=== PATIENT | female | born 2005 | race Caucasian/White ===

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

== ENCOUNTER 2024-05-23 12:27 | Emergency (ER) | payer OTHER, SELFPAY ==
[2024-05-23 12:30] VITALS: BP 106/62; PULSE 71; RESP 16; TEMP 37; O2SAT 97; BMI 35.9
--- NOTE | 2024-05-23 12:31 | ED_ITS ---
HPI - General Adult General Chief complaint: Back Pain/Injury Stated complaint: Low Back Pain S/P Injury 05/23/24 Time Seen by Provider: 05/23/24 12:31 Source: patient, RN notes reviewed and old records reviewed Mode of arrival: ambulatory Limitations: no limitations History of Present Illness ED Provider: Courtney CHIU narrative: 19-year-old female presents for evaluation of lower back pain. She reports that she went outside to greens picker a package that was left on her doorstep today. She states that she bent over and when she tried to lift it she had pain to her lower back. She denies any numbness, tingling. The pain does not radiate. Denies any history of back problems Denies any weakness. Her pain is worse with sitting and getting up from a seated position Related Data Previous Rx's ?Medication ?Instructions ?Recorded naproxen 500 mg tablet 500 mg PO BID 10 days #20 tabs 03/02/21 naproxen 500 mg tablet 500 mg PO BID 10 days #20 tabs 03/02/21 benzonatate 100 mg capsule 100 mg PO BID PRN cough #10 caps 04/02/21 (Andre Pascual) amoxicillin 875 mg-potassium 1 tab PO BID #14 tabs 02/05/22 clavulanate 125 mg tablet cetirizine 10 mg capsule 10 mg PO DAILY PRN allergy 02/05/22 symptoms #14 caps ibuprofen 600 mg tablet 600 mg PO Q6H PRN pain #20 tabs 02/05/22 cyclobenzaprine 10 mg tablet 10 mg PO TID PRN muscle spasm #20 05/23/24 tabs ibuprofen 600 mg tablet 600 mg PO Q6H PRN pain #20 tabs 05/23/24 Allergies Allergy/AdvReac Type Severity Reaction Status Date / Time No Known Allergies Allergy Verified 05/23/24 12:31 Review of Systems Constitutional: Constitutional: Denies body ache(s), Denies chills and Denies fever(s) Cardiovascular: Cardiovascular: Denies chest pain Respiratory: Respiratory: Denies cough Gastrointestinal: Gastrointestinal: Denies abdominal pain, Denies nausea and Denies vomiting Musculoskeletal: Musculoskeletal: Reports back pain Integumentary/Breasts: Skin/Breast: Denies rash Psychiatric: Psychiatric: Denies anxiety PMFSH Past Medical History Medical History Asthma Diabetes Social History Social History Advance Directives: No Advance Directives Information Provided: Yes Physical Exam ED Vital Signs: Vital Signs - 24 hr 05/23/24 12:30 Temperature 98.6 F Pulse Rate 71 Respiratory Rate 16 Blood Pressure 106/62 Pulse Oximetry 97 Oxygen Delivery Method Room Air BMI result Body Mass Index 35.9 Const General: healthy appearing, comfortable, no acute distress, alert and awake Nutritional Appearance: well nourished Orientation/consciousness: patient oriented x3 HENMT Head: Yes normocephalic and Yes atraumatic Eyes Eyelids: Yes eyelids normal Conjunctivae: conjunctivae normal Sclerae: sclerae normal Corneas: corneas normal Pupils: Equal, round and reactive pupils present EOM: EOMs intact bilaterally Neck Neck: Yes full ROM Resp Effort & Inspection: normal respiratory effort, able to speak in complete sentences and not labored GI Inspection: No distended Palpation (GI): Soft to palpation, not firm, nontender, no guarding and not rigid Back/Spine/Pelvis Other: There is tenderness around the lumbar paraspinous region bilaterally. No focal vertebral tenderness, no step-offs or deformities. Straight leg raise negative bilaterally Skin General skin exam: elasticity normal Neuro General: patient oriented x3 Cranial nerves: Yes Equal, round and reactive pupils present and Yes Bilaterally intact EOM present Cognition (Neuro): normal cognition Extrem Other: Moving all extremities well without any obvious deformities Medical Decision Making Medical Decision Making MDM Narrative: Patient has lower back pain after bending over and lifting. There was no fall or trauma to the back. There was no indication for emergent x-ray at this time. She has no warning signs for cauda equina syndrome, her pain does not radiate, I doubt nerve root impingement. We will treat her muscle strain with ibuprofen and cyclobenzaprine Differential Diagnosis Differential Diagnoses: The differential diagnosis associated with the presentation includes Lumbar strain Radiculopathy Disc herniation Back pain Tests considered The following testing was considered but not selected: Consider x-ray of the lumbar spine Prescription Management I considered prescription management with: Pain Medication Discharge Plan Discharge Clinical Impression: Lumbar strain Patient Disposition: Home, Self-Care Instructions: Acute Low Back Pain (ED) Additional Instructions: Your symptoms are most consistent with a muscle strain. Use ibuprofen/Tylenol as needed for pain. You may use cyclobenzaprine as needed for muscle spasms. This may make you drowsy, do not drink alcohol or drive after taking it Follow-up with your primary doctor, return for new or worsening symptoms Prescriptions: New cyclobenzaprine 10 mg tablet 10 mg PO TID PRN (Reason: muscle spasm) Qty: 20 0RF ibuprofen 600 mg tablet 600 mg PO Q6H PRN (Reason: pain) Qty: 20 0RF No Action benzonatate [Tessalon Perles] 100 mg capsule 100 mg PO BID PRN (Reason: cough) Qty: 10 0RF amoxicillin-pot clavulanate 875-125 mg tablet 1 tab PO BID Qty: 14 0RF cetirizine 10 mg capsule 10 mg PO DAILY PRN (Reason: allergy symptoms) Qty: 14 0RF ibuprofen 600 mg tablet 600 mg PO Q6H PRN (Reason: pain) Qty: 20 0RF naproxen 500 mg tablet 500 mg PO BID 10 Days Qty: 20 0RF naproxen 500 mg tablet 500 mg PO BID 10 Days Qty: 20 0RF Stand Alone Forms: Work/School Release Discharge Date/Time: 05/23/24 12:38 Print Language: Turkish
== END 2024-05-23 12:38 | disposition home or self-care (01) ==
LOC: HO.ED 12:36
PROVIDERS: Emergency Provider Emergency Medicine; PCP Pediatrics
DX: S39.012A Strain of muscle, fascia and tendon of lower back, initial encounter (principal); X50.9XXA Other and unspecified overexertion or strenuous movements or postures, initial encounter; Y93.89 Activity, other specified; Y92.018 Other place in single-family (private) house as the place of occurrence of the external cause; Y99.9 Unspecified external cause status
CPT/HCPCS: 99281; 99283

== ENCOUNTER 2025-06-05 18:34 | Emergency (ER) | payer OTHER, SELFPAY ==
--- NOTE | ~2025-06-05 | XR_ITS ---
CLINICAL HISTORY: prod cough, sob 2 view chest x-ray. Comparison: None Findings: No consolidation or effusion. Cardiac and mediastinal contours are unremarkable. Bones unremarkable. Impression: 1. No acute pulmonary disease. This document has been electronically signed by: Mark Broderick MD on 06/05/2025 19:15:36
[2025-06-05 18:37] VITALS: BP 134/72; PULSE 102; RESP 20; TEMP 37.2; O2SAT 94; BMI 36.2
--- NOTE | 2025-06-05 18:38 | ED.URI ---
HPI - URI/Sore Throat General Chief Complaint: Upper Respiratory Symptoms Stated Complaint: Migraine Cough Sneezing Time Seen by Provider: 06/05/25 21:29 Source: patient Mode of arrival: ambulatory Limitations: no limitations History of Present Illness ED Provider: Dr. Martinez [facility] Narrative: 20-year-old female history of asthma presented hospital today for cough congestion shortness of breath for the past 2 days. Been using inhaler without any relief. Also complaining of some headaches as well. Related Data Previous Rx's ?Medication ?Instructions ?Recorded naproxen 500 mg tablet 500 mg PO BID 10 days #20 tabs 03/02/21 naproxen 500 mg tablet 500 mg PO BID 10 days #20 tabs 03/02/21 benzonatate 100 mg capsule 100 mg PO BID PRN cough #10 caps 04/02/21 (Andre Pascual) amoxicillin 875 mg-potassium 1 tab PO BID #14 tabs 02/05/22 clavulanate 125 mg tablet cetirizine 10 mg capsule 10 mg PO DAILY PRN allergy 02/05/22 symptoms #14 caps ibuprofen 600 mg tablet 600 mg PO Q6H PRN pain #20 tabs 02/05/22 cyclobenzaprine 10 mg tablet 10 mg PO TID PRN muscle spasm #20 05/23/24 tabs ibuprofen 600 mg tablet 600 mg PO Q6H PRN pain #20 tabs 05/23/24 benzonatate 200 mg capsule 200 mg PO TID PRN cough #20 caps 06/05/25 prednisone 20 mg tablet 40 mg (2 x 20 mg) PO DAILY 5 days 06/05/25 #10 tabs Allergies Allergy/AdvReac Type Severity Reaction Status Date / Time No Known Allergies Allergy Verified 06/05/25 18:39 Review of Systems Review of Systems: Pertinent review of systems as mentioned in HPI. All other system otherwise negative. [facility] Past Medical History [facility] Narrative: Medical history as mentioned in [facility] Medical History Asthma Diabetes Social History Social History Advance Directives: No Advance Directives Information Provided: No Physical Exam Exam: Exam: General: Pleasant, no distress, interacting appropriately Head: Normacephalic, atraumatic ENT: oral mucosa moist, neck supple, no tracheal deviation Cardiovascular: regular rate, regular rhythm, no murmurs, rubbing, gallops Respiratory: CTAB, no wheeze, rales, rhonchi Neurological: Awake and alert, no facial droop noted Skin: Warm and dry Psychiatric: Appropriate mood and thoughts Vital Signs: Vital Signs: Last Vital Signs Temp 98.2 F 06/05/25 22:15 Pulse 102 H 06/05/25 22:15 Resp 18 06/05/25 22:15 BP 124/72 06/05/25 22:15 Pulse Ox 94 06/05/25 22:15 O2 Del Method Room Air 06/05/25 22:15 BMI result Body Mass Index 36.2 Course Course Course Narrative: This is a Rapid Medical Exam performed in triage by Nuvia Abreu PA-C. Full HPI, ROS and PE to be performed by primary ED provider. 20 yo F asthma, DM presenting to the ED c/o productive cough, SOB, migraine, sneezing, congested x last night. has been using inhaler w/o relief PE: NAD, nontoxic appearing, posterior oropharynx WNL, tonsils WNL, uvula midline. Lungs CTA Plan: SARs, Rapid strep, CXR Medical Decision Making Medical Decision Making MDM Narrative: 20-year-old female history of asthma presented hospital today for upper respiratory infection symptoms. Patient has tested positive for RSV We will plan to give patient a dose of prednisone here. Patient does have an albuterol as well. Encouraged conservative treatment in his supportive treatment for her infection at this time. Chest x-ray did not show any signs of pneumonia. Cough medicine will be prescribed to the patient. Encouraged her to follow up with the primary care doctor. Patient will be discharged Differential Diagnosis Differential Diagnoses: The differential diagnosis associated with the presentation includes Flu, COVID, flu, pneumonia, URI Lab Data [facility] Lab Attestation statement: I reviewed the patient's lab results. Labs: Lab Results 06/05/25 Range/Units 18:57 Influenza Type A (PCR) NEGATIVE (Negative) Influenza Type B (PCR) NEGATIVE (Negative) RSV RNA Qual (PCR) POSITIVE A (Negative) SARS-CoV-2 RNA (RT-PCR) NEGATIVE (Negative) S. pyogenes GrpA WENDY Negative (Negative) Independent Interpretation I performed an independent interpretation of an: Plain X-Ray Radiology Impression Discussion of test interpretation with radiology: I have reviewed the radiologist's reading. Discharge Plan Discharge Clinical Impression: Respiratory syncytial virus (RSV) Patient Disposition: Home, Self-Care Instructions: RSV (Respiratory Syncytial Virus) Infection (ED) Additional Instructions: Continue supportive treatment. RSV + on test. No pneumonia on chest x ray. Use the MDI for your albuterol inhaler. Prescriptions: New prednisone 20 mg tablet 40 mg PO DAILY 5 Days Qty: 10 0RF benzonatate 200 mg capsule 200 mg PO TID PRN (Reason: cough) Qty: 20 0RF No Action benzonatate [Tessalon Perles] 100 mg capsule 100 mg PO BID PRN (Reason: cough) Qty: 10 0RF amoxicillin-pot clavulanate 875-125 mg tablet 1 tab PO BID Qty: 14 0RF cetirizine 10 mg capsule 10 mg PO DAILY PRN (Reason: allergy symptoms) Qty: 14 0RF ibuprofen 600 mg tablet 600 mg PO Q6H PRN (Reason: pain) Qty: 20 0RF naproxen 500 mg tablet 500 mg PO BID 10 Days Qty: 20 0RF naproxen 500 mg tablet 500 mg PO BID 10 Days Qty: 20 0RF cyclobenzaprine 10 mg tablet 10 mg PO TID PRN (Reason: muscle spasm) Qty: 20 0RF ibuprofen 600 mg tablet 600 mg PO Q6H PRN (Reason: pain) Qty: 20 0RF Stand Alone Forms: Work/School Release Print Language: Danish
[2025-06-05 19:56] LABS: IDNOW Serial# 6674DD1D; Strep A Nucleic Acid Negative (Negative)
[2025-06-05 20:05] LABS: Resp Syncy Virus RNA Qual PCR POSITIVE (Negative); SARS COV2 PCR INHOUSE NEGATIVE (Negative)
--- OUTSIDE RECORDS SUMMARY | 2025-06-05 21:22 | XMS_ITS | Encounter Summary ---
Author Organization [facility] Address [address] [place] [address] Phone Care Team Providers Care Boat Designer Name Role Phone Edita Rm MD Primary Care Provider Unavailabl e Encounter Details Date Type Department Care Team (Late st Contact Info) Description 01/20/2017 Conversion Encounter [facility] - [address] [address] Social History Tobacco Use Types Packs/Day Years Used Date Smoking Tobacco: Never Assessed Comments Unknown Sex and Gender Information Value Date Recorded Sex Assigned at Not on file Legal Sex Female 4:22 PM EDT Gender Identity Not on file Sexual Orientation Not on file documented as of this encounter Plan of Treatment Not on file documented as of this encounter Visit Diagnoses Not on filedocumented in this encounter Care Teams Boat Designer Relationship Specialty Start Date End Date Edita Rm MD PCP - General 01/14/17 12/27/23 documented as of this encounter
--- OUTSIDE RECORDS SUMMARY | 2025-06-05 21:22 | XMS_ITS | Clinical Summary ---
Author Organization [facility] Address [address] [place] [id number] Phone Care Team Providers Care Dye Blender Name Role Phone Unavailable Primary Care Provider Unavailabl e Immunizations Immunization Administration Dates Next Due DTaP / Hep B / IPV 2004,2004, 004 DTaP 5 08/23/2005 Hep B, ped/adol 2004 Hib (HbOC) 05/27/2005,2004,2004 ,2004 Influenza, injectable, trivalent 03/24/2007,05/07 MMR 2005 Pneumococcal Conjugate 05/27/2005,2004,04/2005,2004 Varicella 2005 Family History Relation Name Status Comments Father Alive Father: Alive a nd well Mother Alive Mother: Alive a nd well Other No family histo ry of Migraines, No family history of Sudden /TX under age 55, Family history of Diabetes mellitus, No family history of Seizure disorder, No family history of Developmental dislocation of hip, No family history of ADD/ADHD, No family history of Strabismus/amblyopia, No family history of Elevated cholesterol, Family history of Asthma, Family history of Obesity, No family history of Deafness, No family history of Autism Social History Tobacco Use Types Packs/Day Years Used Date Smoking Tobacco: Never Assessed Comments Unknown Sex and Gender Information Value Date Recorded Sex Assigned at Not on file Legal Sex Female 4:22 PM EDT Gender Identity Not on file Sexual Orientation Not on file Plan of Treatment Health Maintenance Due Date Last Done Comments IPV Vaccines (4 of 4 - 4-dose series) 2008 2004, 2004, 2004 Varicella Vaccines (2 of 2 - 2-dose childhood series) 2008 2005 DTaP,Tdap,and Td Vaccines (5 - Tdap) 01/24/2015 08/23/2005, 2004, 2004, Additional history exists HPV Vaccines (1 - 3-dose series) 01/24/2019 Men B Vaccine (1 of 2 - Standard) 2020 Meningococcal Vaccine (1 - 2-dose series) 2020 Influenza Vaccines (#1) 2025 03/24/2007, 05/27 COVID-19 Vaccine ( - season) 2025 Hepatitis B Vaccines Completed 2004, 2004, 2004, Additional history exists MMR Vaccines Completed 2005 HIB Vaccines Completed 05/27/2005, 08/05, 2004, Additional history exists Pneumococcal Vaccine Completed 05/27/2005, 2004, 2004, Additional history exists Hepatitis A Vaccines Aged Out No long er eligible based on patient's age to complete this topic
[2025-06-05 22:15] VITALS: BP 124/72; PULSE 102; RESP 18; TEMP 36.8; O2SAT 94
[2025-06-05 22:51] VITALS: BP 129/78; PULSE 107; RESP 20; TEMP 36.8; O2SAT 97
== END 2025-06-05 22:55 | disposition home or self-care (01) ==
PROVIDERS: Physician Assistant; Emergency Provider Student in an Organized Health Care Education/Training Program; PCP Pediatrics
DX: R06.02 Shortness of breath (principal); R05.9 Cough, unspecified; B97.4 Respiratory syncytial virus as the cause of diseases classified elsewhere; E11.8 Type 2 diabetes mellitus with unspecified complications; Z03.818 Encounter for observation for suspected exposure to other biological agents ruled out
CPT/HCPCS: 71046; 87637; 87651; 99283; 99284

== ENCOUNTER → 2025-06-05 18:39 | Outpatient (BNV) | payer OTHER, SELFPAY | PROVIDERS: PCP Pediatrics; Visit Provider Radiology Diagnostic Radiology | DX: R05.9 Cough, unspecified (principal) | CPT/HCPCS: 71046 ==